=== PATIENT | female | born 1995 | race African-American/Black ===

== ENCOUNTER 2016-06-17 03:24 | Emergency (ER) | payer OTHER ==
[~2016-06-17] VITALS: Ht 170.2 cm; Wt 88.5 kg
[~2016-06-17 03:24] MED LIST: CLIN300C86 PO; DOXY100C2 PO; FLUC150T PO; METR500T PO
[2016-06-17 03:30] VITALS: BP 137/64
--- NOTE | 2016-06-17 04:10 | PHYS DOC ---
Past Medical History Past Medical History: Other Additional Past Medical Histor: GONORRHEA, TRICH Past Surgical History: No Surgical History Alcohol Use: Occasionally Drug Use: None Adult General Chief Complaint Chief Complaint: INSECT BITE HPI HPI 20-year-old female states she was bit by a spider on her right upper thigh 2 days ago and since that time she's had some tingling in her chest in her fingers and around her mouth. She's also had some body aches including upper back pain she's had some nausea and no fever chills or sweats. She states she didn't have any energy and didn't want to go to work today. [] Review of Systems Review of Systems Constitutional: Denies fever or chills [] Eyes: Denies change in visual acuity, redness, or eye pain [] HENT: Denies nasal congestion or sore throat [] Respiratory: Denies cough or shortness of breath [] Cardiovascular: No additional information not addressed in HPI [] GI: Denies abdominal pain, nausea, vomiting, bloody stools or diarrhea [] : Denies dysuria or hematuria [] Musculoskeletal: Denies back pain or joint pain [] Integument: Denies rash or skin lesions [] Neurologic: Denies headache, focal weakness or sensory changes [] Endocrine: Denies polyuria or polydipsia [] Allergies Allergies Allergies Coded Allergies Type Severity Reaction Last Updated Verified No Known Drug Allergies 10/12/14 No Physical Exam Physical Exam Constitutional: Well developed, well nourished, no acute distress, non-toxic appearance. [] HENT: Normocephalic, atraumatic, bilateral external ears normal, oropharynx moist, no oral exudates, nose normal. [] Eyes: PERRLA, EOMI, conjunctiva normal, no discharge. [] Neck: Normal range of motion, no tenderness, supple, no stridor. [] Cardiovascular:Heart rate regular rhythm, no murmur [] Lungs & Thorax: Bilateral breath sounds clear to auscultation [] Abdomen: Bowel sounds normal, soft, no tenderness, no masses, no pulsatile masses. [] Skin: Small abrasion right upper thigh there is no induration consistent with an abscess. [] Back: No tenderness, no CVA tenderness. [] Extremities: No tenderness, no cyanosis, no clubbing, ROM intact, no edema. [] Neurologic: Alert and oriented X 3, normal motor function, normal sensory function, no focal deficits noted. [] Psychologic: Affect normal, judgement normal, mood normal. [] Current Patient Data Vital Signs Vital Signs Date Time Temp Pulse Resp B/P Pulse Ox O2 Delivery O2 Flow Rate FiO2 06/17/16 03:30 98.0 83 16 137/64 97 Room Air 98.0 EKG EKG [] Radiology/Procedures Radiology/Procedures [] Course & Med Decision Making Course & Med Decision Making Pertinent Labs and Imaging studies reviewed. (See chart for details) [] Dragon Disclaimer Dragon Disclaimer This electronic medical record was generated, in whole or in part, using a voice recognition dictation system. Departure Departure Impression: Primary Impression: Insect bite Additional Impression: Myalgia Disposition: HOME, SELF-CARE Condition: STABLE Referrals: NO PCP (PCP) Patient Instructions: Insect Bite Additional Instructions: Please drink plenty of fluids including electrolyte containing solutions such as Gatorade or Powerade. Take Tylenol or Motrin over the next 2 days to help with her symptoms. Return to the MRSA part with any new or concerning symptoms Problem Qualifiers Primary Impression: Insect bite Encounter type: initial encounter Qualified Code: W57.XXXA - Bitten or stung by nonvenomous insect and other nonvenomous arthropods, initial encounter ISIDRO ALEXANDRE DO Jun 17, 2016 04:10
== END 2016-06-17 04:33 | disposition home or self-care (01) ==
LOC: ER 03:24
DX: S70.361A Insect bite (nonvenomous), right thigh, initial encounter (principal); M79.1 Myalgia; J98.8 Other specified respiratory disorders; R11.0 Nausea; W57.XXXA Bitten or stung by nonvenomous insect and other nonvenomous arthropods, initial encounter; Y93.89 Activity, other specified; Y99.8 Other external cause status; Y92.89 Other specified places as the place of occurrence of the external cause
CPT/HCPCS: 99283

== ENCOUNTER 2016-07-22 06:47 | Emergency (ER) | payer OTHER ==
[~2016-07-22] VITALS: Ht 170.2 cm; Wt 88.5 kg
--- NOTE | 2016-07-22 07:24 | PHYS DOC ---
Past Medical History Past Medical History: Other Additional Past Medical Histor: GONORRHEA, TRICH Past Surgical History: No Surgical History Alcohol Use: Occasionally Drug Use: None Adult General Chief Complaint Chief Complaint: BLOOD IN URINE HPI HPI Patient is a 20 year old female who presents with dysuria that began 3 days ago. Patient's also complaining of blood in her urine. Patient denies any fever nausea or vomiting. She is also complaining of chronic bilateral low back pain. Patient denies any known injury. Denies any pain radiating to bilateral lower extremities or any loss of bowel bladder function. Review of Systems Review of Systems Constitutional: Denies fever or chills [] Eyes: Denies change in visual acuity, redness, or eye pain [] HENT: Denies nasal congestion or sore throat [] Respiratory: Denies cough or shortness of breath [] Cardiovascular: No additional information not addressed in HPI [] GI: Denies abdominal pain, nausea, vomiting, bloody stools or diarrhea [] : dysuria and hematuria [] Musculoskeletal: Chronic low back pain Integument: Denies rash or skin lesions [] Neurologic: Denies headache, focal weakness or sensory changes [] Endocrine: Denies polyuria or polydipsia [] Current Medications Current Medications Current Medications Medications (Trade) Dose Ordered Sig/Delaney Start Time Stop Time Status Last Admin Dose Admin Ibuprofen (Motrin) 600 mg 1X ONCE 07/22/16 07:30 07/22/16 07:31 DC 07/22/16 07:53 600 MG Phenazopyridine HCl (Pyridium) 200 mg 1X ONCE 07/22/16 07:30 07/22/16 07:31 DC 07/22/16 07:53 200 MG Allergies Allergies Allergies Coded Allergies Type Severity Reaction Last Updated Verified No Known Drug Allergies 10/12/14 No Physical Exam Physical Exam Constitutional: Well developed, well nourished, no acute distress, non-toxic appearance. [] HENT: Normocephalic, atraumatic, bilateral external ears normal, oropharynx moist, no oral exudates, nose normal. [] Eyes: PERRLA, EOMI, conjunctiva normal, no discharge. [] Neck: Normal range of motion, no tenderness, supple, no stridor. [] Cardiovascular:Heart rate regular rhythm, no murmur [] Lungs & Thorax: Bilateral breath sounds clear to auscultation [] Abdomen: Bowel sounds normal, soft, no tenderness, no masses, no pulsatile masses. [] Skin: Warm, dry, no erythema, no rash. [] Back: No tenderness, no CVA tenderness. [] Extremities: No tenderness, no cyanosis, no clubbing, ROM intact, no edema. [] Neurologic: Alert and oriented X 3, normal motor function, normal sensory function, no focal deficits noted. [] Psychologic: Affect normal, judgement normal, mood normal. [] Current Patient Data Vital Signs Vital Signs Date Time Temp Pulse Resp B/P Pulse Ox O2 Delivery O2 Flow Rate FiO2 07/22/16 07:10 98.2 83 18 99 Room Air 98.2 Lab Values Laboratory Tests Test 07/22/16 07:17 07/22/16 08:05 POC Urine HCG, Qualitative Hcg negative (Negative) Urine Collection Type Unknown Urine Color Yellow Urine Clarity Cloudy Urine pH 6.0 Urine Specific [place] >=1.030 Urine Protein 100mg/dL (NEG-TRACE) Urine Glucose (UA) Negativemg/dL (NEG) Urine Ketones (Stick) Negativemg/dL (NEG) Urine Blood Large (NEG) Urine Nitrite Negative (NEG) Urine Bilirubin Negative (NEG) Urine Urobilinogen Dipstick 0.2mg/dL (0.2 mg/dL) Urine Leukocyte Esterase Large (NEG) Urine RBC Fobs/HPF (0-2) Urine WBC Tntc/HPF (0-4) Urine Squamous Epithelial Cells Many/LPF Urine Bacteria Many/HPF (0-FEW) Urine Mucus Marked/LPF EKG EKG [] Radiology/Procedures Radiology/Procedures [] Course & Med Decision Making Course & Med Decision Making Pertinent Labs and Imaging studies reviewed. (See chart for details) Patient is in the ED with dysuria for 3 days and hematuria. Patient is also complaining of chronic back pain. No known injury. Urine shows infection of the urine appears contaminated patient has UTI symptoms. Urine also was noted for large amount of blood agent is not on her menstrual cycle. We did a CT of the abdomen and pelvic which is negative. I went ahead and sent patient home with antibiotics specifically Bactrim and urine was sent to lab for culture. She was instructed to push fluids. Discharged with Pyridium for dysuria, ibuprofen and Flexeril for her chronic back pain. Provided return precautions and discharged in stable condition. Navneet Disclaimer Navneet Disclaimer This electronic medical record was generated, in whole or in part, using a voice recognition dictation system. Departure Departure Impression: Primary Impression: Urinary tract infection Additional Impression: Chronic back pain Disposition: 01 HOME, SELF-CARE Condition: STABLE Referrals: NO PCP (PCP) Follow-up with a doctor from the list provided in one week Patient Instructions: Back Pain, Adult, Urinary Tract Infection Additional Instructions: You were seen for urinary tract infection and chronic back pain. Please complete your antibiotics. Follow-up with your doctor or doctor from the list provided in one week. Come back to the ED if symptoms worsen. Scripts Naproxen 500 Mg Tablet.dr1 Tab PO BID #30 TAB Ref 2 Prov:JILLIAN LIU APRN 07/22/16 Cyclobenzaprine Hcl 10 Mg Tablet1 Tab PO TID #30 TAB Prov:JILLIAN LIU APRN 07/22/16 Phenazopyridine Hcl (Pyridium)100 Mg [id number] Mg PO TID #8 TAB Prov:JILLIAN LIU APRN 07/22/16 Sulfamethoxazole/Trimethoprim (Bactrim Ds Tablet)1 Each Tablet1 Tab PO BID #14 TAB Prov:JILLIAN LIU APRN 07/22/16 Problem Qualifiers Primary Impression: Urinary tract infection Urinary tract infection type: acute cystitis Hematuria presence: with hematuria Qualified Code: N30.01 - Acute cystitis with hematuria Additional Impression: Chronic back pain Back pain location: low back pain Back pain laterality: bilateral Sciatica presence: without sciatica Qualified Code: M54.5 - Low back pain JILLIAN LIU APRN Jul 22, 2016 07:24
[2016-07-22] MEDS ORDERED: IBUPROFEN 600 MG TABLET. PO ONE (07:30)
[2016-07-22] MEDS ORDERED: PHENAZOPYRIDINE 200 MG TABLET. PO ONE (07:30)
[2016-07-22 08:26] LABS: BILIRUBIN,URINE NEGATIVE (NEG); GLUCOSE,URINE NEGATIVE (NEG); NITRITE,URINE NEGATIVE (NEG); PROTEIN,URINE 100 mg/dL (NEG-TRACE); UROBILINOGEN,URINE 0.2 mg/dL (0.2 mg/dL)
[2016-07-22 08:37] LABS: BACTERIA,URINE MANY /HPF (0-FEW); RBC,URINE FOBS /HPF (0-2); SQUAMOUS EPITHELIAL CELL,UR MANY /LPF; WBC,URINE TNTC /HPF (0-4)
--- NOTE | 2016-07-22 10:41 | RAD ---
CT scan of the abdomen and pelvis without contrast 07/22/2016 Clinical history: Hematuria and left flank pain. Technique: Unenhanced, contiguous, 2 mm axial sections were obtained through the abdomen and pelvis. One or more of the following individualized dose reduction techniques were utilized for this study: 1. Automated exposure control. 2. Adjustment of the mA and/or kV according to patient size. 3. Use of iterative reconstruction technique. Findings: Images through the lung bases are within normal limits. The liver, spleen, pancreas, and adrenal glands are within normal limits. No renal or ureteral calculus is seen. There is no evidence of significant obstruction of either collecting system. A punctate calcification is seen inferior and medial to the left kidney which appears to be separate from the left renal pelvis/ureter. It is felt to most likely represent a phlebolith. The abdominal aorta tapers normally. The gallbladder is well-distended. No free fluid or free air is seen within the abdomen. There is no evidence of bowel obstruction. The appendix is well visualized and is within normal limits. Images through the pelvis demonstrate the urinary bladder be contracted. Calcifications are seen within the pelvis consistent with phleboliths. A small to moderate amount of free fluid is seen within the pelvis. No adnexal mass is seen. Very mild S-shaped curvature of the thoracolumbar spine is noted. Impression: 1. No renal or ureteral calculus is seen. There is no evidence of obstruction of either collecting system. 2. Small to moderate amount of free fluid is seen within the pelvis.
[2016-07-22] MEDS ORDERED: PHEN100T82 PO (10:55)
[2016-07-22] MEDS ORDERED: CYCL10TA2 PO (10:55)
[2016-07-22] MEDS ORDERED: SULF1TAB24 PO (10:55)
[2016-07-22] MEDS ORDERED: NAPR500T8 PO (10:55)
[2016-07-22 11:00] VITALS: BP 114/58
== END 2016-07-22 11:00 | disposition home or self-care (01) ==
LOC: ER 06:47
DX: N30.01 Acute cystitis with hematuria (principal); G89.29 Other chronic pain; M54.5 Low back pain
CPT/HCPCS: 74176; 81001; 81025; 87086; 99285-25

== ENCOUNTER 2016-09-03 14:30 | Emergency (ER) | payer SELFPAY ==
[~2016-09-03] VITALS: Ht 170.2 cm; Wt 94.8 kg
[~2016-09-03 14:30] MED LIST changes: +CYCL10TA2 PO; +NAPR500T8 PO; +PHEN100T82 PO; +SULF1TAB24 PO
[2016-09-03 14:52] VITALS: BP 105/60
[2016-09-03] MEDS ORDERED: NYST30PO9 TP (15:36)
--- NOTE | 2016-09-03 15:36 | PHYS DOC ---
Past Medical History Past Medical History: STD, Other Additional Past Medical Histor: GONORRHEA, TRICH, substance abuse Past Surgical History: No Surgical History Additional Information: 4-5 cigarettes daily Alcohol Use: Sober Additional Information: sober 1 week Drug Use: Cocaine, Marijuana, Phencyclidine, Other Social History Narrative: whet Adult General Chief Complaint Chief Complaint: BREAST PROBLEM HPI HPI 20-year-old female presenting to the emergency department today by EMS after complaining of a rash underneath her breasts bilaterally is been present for about one week. It is a red eye rash. She reports using a recent change in her fabric softener. She has not tried anything for the rash. She does have a pain around the rash is sharp mild worse with contact and without alleviating factors. Review of systems is positive for sharp shooting chest pain intermittently for 3 days that is worse with deep breaths. It is nonradiating mild to moderate intermittent and without alleviating factors. She does have a history of cocaine use approximately 2 weeks ago. Otherwise, review of systems is negative for abdominal pain nausea vomiting diaphoresis. All other review of systems is negative unless otherwise noted in history of present illness. Review of Systems Review of Systems SEE ABOVE. Allergies Allergies Allergies Coded Allergies Type Severity Reaction Last Updated Verified No Known Drug Allergies 10/12/14 No Physical Exam Physical Exam Constitutional: Well developed, well nourished, no acute distress, non-toxic appearance. HENT: Normocephalic, atraumatic, bilateral external ears normal, oropharynx moist, no oral exudates, nose normal. Eyes: PERRLA, EOMI, conjunctiva normal, no discharge. [] Neck: Normal range of motion, no tenderness, supple, no stridor. Cardiovascular:Heart rate regular rhythm, no murmur [] Lungs & Thorax: Bilateral breath sounds clear to auscultation Abdomen: Bowel sounds normal, soft, no tenderness, no masses, no pulsatile masses. [] Skin: The patient has a dry scaly rash underneath both breasts. This was visualized in the presence of a female nurse media sales representative. Otherwise her skin is warm and dry. Back: No tenderness, no CVA tenderness. Extremities: No tenderness, no cyanosis, no clubbing, ROM intact, no edema. Neurologic: Alert and oriented X 3, normal motor function, normal sensory function, no focal deficits noted. [] Psychologic: Affect normal, judgement normal, mood normal. Current Patient Data Vital Signs Vital Signs Date Time Temp Pulse Resp B/P Pulse Ox O2 Delivery O2 Flow Rate FiO2 09/03/16 14:52 98.1 89 16 105/60 99 Room Air 98.1 EKG EKG [] Radiology/Procedures Radiology/Procedures [] Course & Med Decision Making Course & Med Decision Making Pertinent Labs and Imaging studies reviewed. (See chart for details) [] 20-year-old female presenting with a rash underneath her breasts consistent with a fungal rash. Triage vital signs afebrile normal heart rate. Unremarkable. Pertinent physical exam shows a rash underneath her breasts consistent with a fungal rash. No evidence of DVT in the legs, no family history or personal history of blood clotting disorders. Not tachycardic or hypoxic. Currently she denies chest pain. I ordered an EKG and a chest x-ray to evaluate her reported chest pain which she did not want to pursue. I explained to her the risks and benefits. I then proceeded to prescribe her a fungal powder for her rash to follow-up with her PCP over the next 2-3 days. She was then discharged in stable condition. Dragon Disclaimer Dragon Disclaimer This electronic medical record was generated, in whole or in part, using a voice recognition dictation system. Departure Departure Impression: Primary Impression: Fungal rash of trunk Disposition: 01 HOME, SELF-CARE Condition: STABLE Referrals: NO PCP (PCP) DEIRDRE JARVIS MD Patient Instructions: Cutaneous Candidiasis Additional Instructions: Thank you for allowing us to participate in your care today. Followup with your primary care physician in 3 days if your symptoms do not improve. If you do not have a primary care provider you can ask for a list of our primary care providers. Return to the emergency department you have any new or concerning findings. This should be evaluated by the primary care physician and any necessary consulting services for continued management within a few days after discharge. Return to emergency room if you have any new or concerning symptoms including but not limited to fever, chills, nausea, vomiting, intractable pain, any new rashes, chest pain, shortness of air, uncontrolled bleeding, difficulty breathing, and/or vision loss. You may have been prescribed medication that can change in your level of thinking and ability to operate machinery. These medications include hydrocodone and Ativan. Also, Benadryl has been known to do this as well. Be sure to check with your pharmacist and ask if the medications you've prescribed can affect your level of consciousness. I recommend not operating heavy machinery or driving while on medication such as these. Scripts Nystatin 15 Gm Powder1 Raul TP BID 7 Days Powder: Apply to the affected areas 2 times daily until healing is complete Prov:CONRAD JEWELL MD 09/03/16 CONRAD JEWELL MD Sep 03, 2016 15:36
== END 2016-09-03 15:55 | disposition home or self-care (01) ==
LOC: ER 14:30
DX: B48.8 Other specified mycoses (principal); R07.89 Other chest pain; H57.8 Other specified disorders of eye and adnexa; F17.210 Nicotine dependence, cigarettes, uncomplicated; F14.10 Cocaine abuse, uncomplicated; F12.10 Cannabis abuse, uncomplicated; F16.10 Hallucinogen abuse, uncomplicated
CPT/HCPCS: 99283

== ENCOUNTER 2017-10-13 16:09 | Observation (INO) | payer SELFPAY ==
[2017-10-13] MEDS ORDERED: IV RINGERS,LACTATED 1000ML 1,000 ML IV (17:00)
[2017-10-13 17:09] LABS: AMPHETAMINE/METHAMPHETAMINE NEG (NEG); BARBITURATES NEG (NEG); BENZODIAZEPINES NEG (NEG); CANNABINOIDS NEG (NEG); COCAINE NEG (NEG); ETHANOL, URINE NEG (NEG); METHADONE NEG (NEG); OPIATES NEG (NEG); PHENCYCLIDINE NEG (NEG)
[2017-10-13 17:10] LABS: BILIRUBIN,URINE NEGATIVE (NEG); CLARITY,URINE CLOUDY; COLOR,URINE YELLOW; GLUCOSE,URINE NEGATIVE (NEG); NITRITE,URINE NEGATIVE (NEG); PH,URINE 7.5; PROTEIN,URINE NEGATIVE (NEG-TRACE)
[2017-10-13 17:40] LABS: AMORPHOUS SEDIMENT,UR PRESENT /HPF; BACTERIA,URINE MANY /HPF (0-FEW); RBC,URINE 0 /HPF (0-2); SQUAMOUS EPITHELIAL CELL,UR MOD /LPF; WBC,URINE OCC /HPF (0-4)
== END 2017-10-13 18:19 | disposition home or self-care (01) ==
LOC: 3 SO LND 16:09
DX: O26.893 Other specified pregnancy related conditions, third trimester (principal); R10.9 Unspecified abdominal pain; Z3A.31 31 weeks gestation of pregnancy
CPT/HCPCS: 80307; 81001; 87086; G0378; G0379

== ENCOUNTER 2019-09-25 10:29 | Emergency (ER) | payer SELFPAY ==
[~2019-09-25] VITALS: Ht 170.2 cm; Wt 90.9 kg
[~2019-09-25 10:29] MED LIST changes: +CLIN300C8 PO; -CLIN300C86 PO; +NYST15PO9 TP
[2019-09-25 10:40] VITALS: BP 139/72
[2019-09-25] MEDS ORDERED: NEOMY/BACITR/POLYMYXIN OINT PACKET. TP ONE ×2 (11:11→11:15)
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
[2019-09-25] MEDS ORDERED: TETANUS AND DIPHTHERIA TOX/PF 0.5 ML DISP.SYRIN. VAX IM ONE (11:15)
== END 2019-09-25 11:21 | disposition home or self-care (01) ==
LOC: ER 10:29
DX: S51.812A Laceration without foreign body of left forearm, initial encounter (principal); F17.200 Nicotine dependence, unspecified, uncomplicated; F10.20 Alcohol dependence, uncomplicated; Y90.9 Presence of alcohol in blood, level not specified; W25.XXXA Contact with sharp glass, initial encounter; Y93.89 Activity, other specified; Y92.89 Other specified places as the place of occurrence of the external cause; Y99.8 Other external cause status
CPT/HCPCS: 12002; 90471; 90714; 99283

== ENCOUNTER 2020-04-22 20:48 | Emergency (ER) | payer SELFPAY ==
[~2020-04-22] VITALS: Ht 170.2 cm; Wt 98.6 kg
[~2020-04-22 20:48] MED LIST changes: -CLIN300C8 PO; +CLIN300C9 PO
[2020-04-22 20:50] VITALS: BP 110/34
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
[2020-04-22] MEDS ORDERED: diphenhydrAMINE HCL 25 MG CAPSULE PO ONE (22:30)
[2020-04-22] MEDS ORDERED: DEXAMETHASONE 4 MG TABLET PO ONE (22:30)
== END 2020-04-22 22:48 | disposition home or self-care (01) ==
LOC: ER 20:48
DX: O26.891 Other specified pregnancy related conditions, first trimester (principal); T47.1X5A Adverse effect of other antacids and anti-gastric-secretion drugs, initial encounter; R13.10 Dysphagia, unspecified; R60.0 Localized edema; F41.9 Anxiety disorder, unspecified; R10.9 Unspecified abdominal pain; Y92.89 Other specified places as the place of occurrence of the external cause; Z3A.01 Less than 8 weeks gestation of pregnancy
CPT/HCPCS: 81025; 99283

== ENCOUNTER 2020-04-24 19:34 | Emergency (ER) | payer SELFPAY ==
[~2020-04-24] VITALS: Ht 170.2 cm; Wt 98.6 kg
[2020-04-24 20:57] VITALS: BP 103/51
--- NOTE | 2020-04-24 21:44 | PHYS DOC ---
Past Medical History Past Medical History: Bipolar, STD, Other Additional Past Medical Histor: GONORRHEA, TRICH, substance abuse Past Surgical History: Other Additional Past Surgical Histo: bartholyn cyst removal Smoking Status: Current Every Day Smoker Alcohol Use: Heavy Drug Use: Cocaine, Marijuana, Phencyclidine, Other General Adult EDM: Chief Complaint: ABDOMINAL PAIN HPI: HPI: Patient is a 24 year old [f__sex] who presents with [] Review of Systems: Review of Systems: Constitutional: Denies fever or chills. [] Eyes: Denies change in visual acuity. [] HENT: Denies nasal congestion or sore throat. [] Respiratory: Denies cough or shortness of breath. [] Cardiovascular: Denies chest pain or edema. [] GI: Denies abdominal pain, nausea, vomiting, bloody stools or diarrhea. [] : Denies dysuria. [] Musculoskeletal: Denies back pain or joint pain. [] Integument: Denies rash. [] Neurologic: Denies headache, focal weakness or sensory changes. [] Endocrine: Denies polyuria or polydipsia. [] Lymphatic: Denies swollen glands. [] Psychiatric: Denies depression or anxiety. [] Heart Score: Risk Factors: Risk Factors: DM, Current or recent (<one month) smoker, HTN, HLP, family history of CAD, obesity. Risk Scores: Score 0 - 3: 2.5% MACE over next 6 weeks - Discharge Home Score 4 - 6: 20.3% MACE over next 6 weeks - Admit for Clinical Observation Score 7 - 10: 72.7% MACE over next 6 weeks - Early Invasive Strategies Allergies: Allergies: Allergies Coded Allergies Type Severity Reaction Last Updated Verified No Known Drug Allergies 10/12/14 No Physical Exam: PE: Constitutional: Well developed, well nourished, no acute distress, non-toxic appearance. [] HENT: Normocephalic, atraumatic, bilateral external ears normal, oropharynx moist, no oral exudates, nose normal. [] Eyes: PERRLA, EOMI, conjunctiva normal, no discharge. [] Neck: Normal range of motion, no tenderness, supple, no stridor. [] Cardiovascular:Heart rate regular rhythm, no murmur [] Lungs & Thorax: Bilateral breath sounds clear to auscultation [] Abdomen: Bowel sounds normal, soft, no tenderness, no masses, no pulsatile masses. [] Skin: Warm, dry, no erythema, no rash. [] Back: No tenderness, no CVA tenderness. [] Extremities: No tenderness, no cyanosis, no clubbing, ROM intact, no edema. [] Neurologic: Alert and oriented X 3, normal motor function, normal sensory function, no focal deficits noted. [] Psychologic: Affect normal, judgement normal, mood normal. [] EKG: EKG: [] Radiology/Procedures: Radiology/Procedures: [] Course & Med Decision Making: Course & Med Decision Making Pertinent Labs and Imaging studies reviewed. (See chart for details) [] Dragon Disclaimer: Vudu Disclaimer: This electronic medical record was generated, in whole or in part, using a voice recognition dictation system. Departure Departure Impression: Primary Impression: , therapeutic incomplete Disposition: 01 DC HOME SELF CARE/HOMELESS Condition: STABLE Referrals: NO PCP (PCP) Patient Instructions: , Prostaglandin-Induced Additional Instructions: Please allow your medications given by the clinic to complete its course, please give an additional 2 weeks. If still having symptoms or worsening symptoms please return to the emergency department, please follow-up with your REGIONAL ENVIRONMENTAL MANAGER specialist. Please use [id number] Tylenol and/or Motrin for discomfort. EMERGENCY DEPARTMENT GENERAL DISCHARGE INSTRUCTIONS Thank you for coming to [facility] Emergency Department (ED) today and trusting us with you care. We trust that you had a positive experience in our Emergency Department. If you wish to speak to the department management, you may call the Director at [phone]. YOUR FOLLOW UP INSTRUCTIONS ARE FOLLOWS: 1. Do you have a private Doctor? If you do not have a private doctor, please ask for a resource list of physicians or clinics that may be able to assist you with follow up care. 2. The Emergency Physicain has interpreted your x-rays. The X-Ray specialist will also review them. If there is a change in the findings, you will be notified in 48 hours when at all possible. 3. A lab test or culture has been done, your results will be reviewed and you will be notified if you need a change in treatment. ADDITIONAL INSTRUCTIONS AND INFORMATION: 1. Your care today has been supervised by a physician who is specially trained in emergency care. Many problems require more than one evaluation for a complete diagnosis and treatment. We recommend that you schedule your follow up appointment as recommended to ensure complete treatment of you illness or injury. If you are unable to obtain follow up care and continue to have a problem, or if your condition worsens, we recommend that you return to the ED. 2. We are not able to safely determine your condition over the phone nor are we able to give sound medical advice over the phone. For these safety reasons, if you call for medical advice we will ask you to come to the ED for further evaluation. 3. If you have any questions regarding these discharge instructions please call the ED at [phone]. SAFETY INFORMATION: In the interest of safety, wellness, and injury prevention; we encourage you to wear your sealbelt, if you smoke; quite smoking, and we encourage family to use a protective helmet for bicycling and other sporting events that present an increased risk for head injury. IF YOUR SYMPTOMS WORSEN OR NEW SYMPTOMS DEVELOP, OR YOU HAVE CONCERNS ABOUT YOUR CONDITION; OR IF YOUR CONDITION WORSENS WHILE YOU ARE WAITING FOR YOUR FOLLOW UP APPOINTMENT; EITHER CONTACT YOUR PRIMARY CARE DOCTOR, THE PHYSICIAN WHOSE NAME AND NUMBER YOU WERE GIVEN, OR RETURN TO THE ED IMMEDIATELY. DEIRDRE JOHNSON APRN Apr 24, 2020 21:44
[2020-04-24 22:28] LABS: BILIRUBIN,URINE NEGATIVE (NEG); CLARITY,URINE CLOUDY; COLOR,URINE YELLOW; NITRITE,URINE NEGATIVE (NEG); PH,URINE 6.5 (<5.0-8.0); PROTEIN,URINE 30 mg/dL (NEG-TRACE)
[2020-04-24 22:29] LABS: BACTERIA,URINE MANY /HPF (0-FEW); RBC,URINE TNTC /HPF (0-2); WBC,URINE 20-40 /HPF (0-4)
--- NOTE | 2020-04-24 23:26 | RAD ---
OB TRANSVAG History: Reason: OB LESS THAN 20 WEEKS TAB R/O RETAINED PRODUCTS / Spl. Instructions: / History: Comparison: None. Technique: Grayscale and color Doppler imaging of the pelvis was performed using transabdominal technique. Findings: The uterus measures 9.1 x 5.9 x 5.8 cm. Nonspecific fluid within the endometrial canal. Small cystic structure within the endometrial canal with regular appearance measures 0.35 cm, may represent gestational sac. No yolk sac or pole is identified. Estimated gestational age if the cystic structure represents gestational sac would be 5 weeks 1 day. Right ovary measures 4.0 x 2.4 x 2.4 cm. Dominant right ovarian follicle measures 1.5 cm. Left ovary measures 3.8 x 2.2 x 2.0 cm. Normal Doppler flow to the ovaries bilaterally. No adnexal masses are seen. IMPRESSION: 1. Possible gestational sac within the endometrial canal. No pole is identified. Recommend short-term ultrasound follow-up and serial beta-hCG testing. 2. Nonspecific fluid within the endometrial canal. Electronically signed by: Bala Del Cid DO (04/24/2020 11:23 PM) [facility]
[2020-04-25 00:24] LABS: BASO # 0.1 x10^3/uL (0.0-0.2); BASO % 1 % (0-3); EOS # 0.1 x10^3/uL (0.0-0.7); EOS % 1 % (0-3); HEMATOCRIT 36.5 % (36.0-47.0); HEMOGLOBIN 12.6 g/dL (12.0-15.5); LYMPH # 4.4 x10^3/uL (1.0-4.8); LYMPH % 45 % (24-48); MEAN CORPUSCULAR HEMOGLOBIN 31 pg (25-35); MEAN CORPUSCULAR HGB CONC 34 g/dL (31-37); MEAN CORPUSCULAR VOLUME 89 fL (79-100); MONO # 0.6 x10^3/uL (0.0-1.1); MONO % 7 % (0-9); NEUT # 4.6 x10^3/uL (1.8-7.7); NEUT % 47 % (31-73); PLATELET COUNT 249 x10^3/uL (140-400); RED BLOOD COUNT 4.09 x10^6/uL (3.50-5.40); RED CELL DISTRIBUTION WIDTH 13.8 % (11.5-14.5); WHITE BLOOD COUNT 9.8 x10^3/uL (4.0-11.0)
[2020-04-25 00:38] LABS: TOTAL PROTEIN 6.9 g/dL (6.4-8.2)
[2020-04-25 00:39] LABS: ALBUMIN 3.4 g/dL (3.4-5.0); CALCIUM 8.8 mg/dL (8.5-10.1); CREATININE 0.9 mg/dL (0.6-1.0); GFR 92.3; POTASSIUM 3.5 mmol/L (3.5-5.1); TOTAL BILIRUBIN 0.1 mg/dL (0.2-1.0)
== END 2020-04-25 00:50 | disposition home or self-care (01) ==
LOC: ER 19:34
DX: O03.4 Incomplete spontaneous abortion without complication (principal); F31.9 Bipolar disorder, unspecified; F17.200 Nicotine dependence, unspecified, uncomplicated; F10.20 Alcohol dependence, uncomplicated; Y90.9 Presence of alcohol in blood, level not specified
CPT/HCPCS: 36415; 76817; 80053; 81001; 81025; 85025; 87086; 99284

== ENCOUNTER 2020-05-03 22:12 | Emergency (ER) | payer SELFPAY ==
[~2020-05-03] VITALS: Ht 170.2 cm; Wt 99.7 kg
--- NOTE | 2020-05-03 23:57 | PHYS DOC ---
Past Medical History Past Medical History: No Pertinent History Additional Past Medical Histor: GONORRHEA, TRICH, substance abuse Past Surgical History: No Surgical History Additional Past Surgical Histo: bartholyn cyst removal Smoking Status: Former Smoker Alcohol Use: Occasionally Drug Use: Cocaine, Marijuana, Phencyclidine, Other General Adult EDM: Chief Complaint: MULTIPLE COMPLAINTS HPI: HPI: 24-year-old female who presents for evaluation of multiple symptoms. She reports 1 week of diffuse myalgias and nonspecific upper bilateral back discomfort. Associated with intermittent nausea, fatigue, poor energy. The patient had a recent medical with Cytotec receiving doses on the fourth and 6. She had vaginal bleeding for 10 days and had passage of contents a couple days ago, no longer bleeding. No vaginal discharge. No chest pain, dyspnea, abdominal pain, diarrhea, vomiting. Review of Systems: Review of Systems: Gen: No fever, chills. Reports fatigue. Eyes: No blurred vision, diplopia. ENT: No nasal congestion, sore throat. CV: No CP, palpitations. Resp. No SOB, cough. GI: No abd pain, vomiting, diarrhea. Reports nausea. : No dysuria, hematuria, vaginal bleeding or discharge. Neuro: No CORONADO, dizziness, weakness. MSK: Reports myalgias, back pain. Skin: No acute rash or lesion. Heart Score: Risk Factors: Risk Factors: DM, Current or recent (<one month) smoker, HTN, HLP, family history of CAD, obesity. Risk Scores: Score 0 - 3: 2.5% MACE over next 6 weeks - Discharge Home Score 4 - 6: 20.3% MACE over next 6 weeks - Admit for Clinical Observation Score 7 - 10: 72.7% MACE over next 6 weeks - Early Invasive Strategies Allergies: Allergies: Allergies Coded Allergies Type Severity Reaction Last Updated Verified No Known Drug Allergies 10/12/14 No Physical Exam: PE: Gen: NAD. Head: NC/AT. Eyes: No scleral icterus. No conjunctival injection. ENT: MMM. Posterior OP clear. Neck: Supple. NT. CV: RRR. Peripheral pulses intact. Resp: CTAB. Abd: Soft. NT. ND. MSK: No peripheral cyanosis. No edema. Neuro: A&Ox3. Strength & sensation grossly intact throughout. Skin. Warm. Dry. Psych: Appropriate mood & affect. Current Patient Data: Labs: Laboratory Tests Test 05/03/20 23:03 POC Urine HCG, Qualitative Borderline hcg level Vital Signs: Vital Signs Date Time Temp Pulse Resp B/P (MAP) Pulse Ox O2 Delivery O2 Flow Rate FiO2 05/03/20 23:14 97.9 76 16 120/69 (86) 100 97.9 EKG: EKG: [] Radiology/Procedures: Radiology/Procedures: PROCEDURE: CHEST AP ONLY FINDINGS: Single view of chest obtained. Hypoexpanded examination. Mild haziness at the left lower lung. No gross osseous destructive lesion. IMPRESSION: * Mild haziness at the left lung base which could be secondary to overlap of structures but early infiltrate or atelectasis could have this appearance. Electronically signed by: Rodolfo Magana MD (05/04/2020 12:20 AM) DESKTOP- [id number] Course & Med Decision Making: Course & Med Decision Making Pertinent Labs and Imaging studies reviewed. (See chart for details) In summary, healthy 24-year-old female who presents with multiple vague constitutional symptoms in the setting of recent medical receiving Cytotec on April 21 and with passage of POC's a couple days ago. No current vaginal bleeding or discharge, abdominal pain or pelvic pain. Hemodynamically stable. Benign abdominal exam. Bedside transabdominal pelvic ultrasound revealed a fully collapsed uterus. Lab work is largely unremarkable as well. No evidence of UTI. Chest x-ray with possible developing left lower lobe infiltrate. Not currently suspecting endometritis. Remains well- appearing and nontoxic. We discharged home with outpatient follow-up. Return precautions given. Navneet Disclaimer: Navneet Disclaimer: This electronic medical record was generated, in whole or in part, using a voice recognition dictation system. Departure Departure Impression: Primary Impression: LLL pneumonia Additional Impression: Myalgia Disposition: 01 DC HOME SELF CARE/HOMELESS Condition: STABLE Referrals: NO PCP (PCP) Patient Instructions: Myalgia, Adult, Pneumonia, Adult Scripts Ondansetron (ONDANSETRON ODT) 4 Mg Tab.rapdis 1 TAB PO PRN Q6-8HRS, #16 TAB Prov: LE,JODI H DO 05/04/20 Doxycycline Hyclate (DOXYCYCLINE HYCLATE) 100 Mg Capsule 1 CAP PO BID, #14 CAP Prov: LE,JODI H DO 05/04/20 LE,JODI H DO May 03, 2020 23:57
[2020-05-04] LABS: BILIRUBIN,URINE NEGATIVE (NEG); CLARITY,URINE CLEAR; COLOR,URINE YELLOW; NITRITE,URINE NEGATIVE (NEG); PROTEIN,URINE NEGATIVE (NEG-TRACE); UROBILINOGEN,URINE 0.2 mg/dL (0.2 mg/dL)
[2020-05-04 00:09] LABS: BACTERIA,URINE MOD /HPF (0-FEW); RBC,URINE 0 /HPF (0-2)
--- NOTE | 2020-05-04 00:23 | RAD ---
INDICATION: Reason: Fever/chills / Spl. Instructions: / History: COMPARISON: None. FINDINGS: Single view of chest obtained. Hypoexpanded examination. Mild haziness at the left lower lung. No gross osseous destructive lesion. IMPRESSION: * Mild haziness at the left lung base which could be secondary to overlap of structures but early in filtrate or atelectasis could have this appearance. Electronically signed by: Rodolfo Magana MD (05/04/2020 12:20 AM) [id number]
[2020-05-04 00:30] LABS: BASO # 0.1 x10^3/uL (0.0-0.2); BASO % 1 % (0-3); EOS # 0.1 x10^3/uL (0.0-0.7); EOS % 2 % (0-3); HEMOGLOBIN 13.1 g/dL (12.0-15.5); LYMPH % 50 % (24-48); MEAN CORPUSCULAR HEMOGLOBIN 30 pg (25-35); MEAN CORPUSCULAR HGB CONC 34 g/dL (31-37); MEAN CORPUSCULAR VOLUME 89 fL (79-100); MONO # 0.5 x10^3/uL (0.0-1.1); MONO % 9 % (0-9); NEUT # 2.3 x10^3/uL (1.8-7.7); NEUT % 39 % (31-73); PLATELET COUNT 269 x10^3/uL (140-400); RED BLOOD COUNT 4.36 x10^6/uL (3.50-5.40); RED CELL DISTRIBUTION WIDTH 13.9 % (11.5-14.5); WHITE BLOOD COUNT 6.1 x10^3/uL (4.0-11.0)
[2020-05-04 00:39] LABS: CREATININE 0.9 mg/dL (0.6-1.0); GFR 92.3; POTASSIUM 4.1 mmol/L (3.5-5.1)
[2020-05-04 00:46] LABS: ALBUMIN 3.6 g/dL (3.4-5.0); ALBUMIN/GLOBULIN RATIO 0.9 (1.0-1.7); TOTAL BILIRUBIN 0.1 mg/dL (0.2-1.0); TOTAL PROTEIN 7.5 g/dL (6.4-8.2)
[2020-05-04] MEDS ORDERED: DOXY100C2 PO (01:00)
[2020-05-04] MEDS ORDERED: ONDA4TAB12 PO (01:00)
[2020-05-04] MEDS ORDERED: IV NORMAL SALINE 1000ML BAG 1,000 ML IV ONE (01:00)
[2020-05-04 01:48] VITALS: BP 105/58
== END 2020-05-04 02:14 | disposition home or self-care (01) ==
LOC: ER 22:12
DX: J18.1 Lobar pneumonia, unspecified organism (principal); M79.10 Myalgia, unspecified site; M54.6 Pain in thoracic spine; R11.0 Nausea; Z87.891 Personal history of nicotine dependence
CPT/HCPCS: 36415; 71045; 80053; 81001; 81025; 82550; 83735; 84702; 85025; 96360; 99284; J7030

== ENCOUNTER 2020-05-08 18:25 | Emergency (ER) | payer SELFPAY ==
[~2020-05-08] VITALS: Ht 170.2 cm; Wt 100.0 kg
[~2020-05-08 18:25] MED LIST changes: +ONDA4TAB12 PO
[2020-05-08 20:15] VITALS: BP 114/62
--- NOTE | 2020-05-08 20:24 | RAD ---
AP chest. HISTORY: Recent diagnosis with pneumonia with fever and chills, not feeling better AP view was taken of the chest. Heart is normal in size. There is no pleural effusion. There is no ac sary infiltrate. Heart is normal in size. IMPRESSION: 1. No infiltrates noted. Electronically signed by: Jonny Robbins MD (05/08/2020 8:22 PM) [id number]
--- NOTE | 2020-05-08 20:38 | PHYS DOC ---
Past Medical History Past Medical History: No Pertinent History, Other Additional Past Medical Histor: GONORRHEA, TRICH, substance abuse Past Surgical History: No Surgical History Additional Past Surgical Histo: bartholyn cyst removal Smoking Status: Former Smoker Alcohol Use: Occasionally Drug Use: Cocaine, Marijuana, Phencyclidine, Other General Adult EDM: Chief Complaint: FATIGUE HPI: HPI: Patient is a 24 year old female who presents to the ED. Stating she is not feeling better after being diagnosed with pneumonia on May 03. She states this whole situation began in March when she had a cold. She states she later on found out she was , she states she did a medical and took misoprostol on April 21 and repeated on April 23, she states she had a successful bled for 10 days with no heavy bleeding. She states the bleeding stopped. She states May 03 she came to the ED because she was not feeling well. She states she was diagnosed with pneumonia and sent home with doxycycline. She states now she has a headache mostly on the frontal aspect mild in nature and intermittent. Denies anything specifically exacerbating or relieving the headache. She states the doxycycline they put her on she is not taking it as prescribed. She states it makes her sick to her stomach so she stopped taking it. She states maybe she takes 1 tablet/day. She states she also noted a small rash on her left upper chest for the last 4 days. She states that the rash feels dry and scaly. She wants the rash evaluated. Denies any fever. Review of Systems: Review of Systems: Constitutional: Denies fever or chills. [] Eyes: Denies change in visual acuity. [] HENT: Denies nasal congestion or sore throat. [] Respiratory: Reports recent diagnosis of left lower lobe pneumonia. Denies cough or shortness of breath. [] Cardiovascular: Denies chest pain or edema. [] GI: Denies abdominal pain, nausea, vomiting, bloody stools or diarrhea. [] : Denies dysuria. [] Musculoskeletal: Denies back pain or joint pain. [] Integument: Reports left upper chest rash Neurologic: Reports headache, denies focal weakness or sensory changes. [] Psychiatric: Denies depression or anxiety. [] Heart Score: Risk Factors: Risk Factors: DM, Current or recent (<one month) smoker, HTN, HLP, family history of CAD, obesity. Risk Scores: Score 0 - 3: 2.5% MACE over next 6 weeks - Discharge Home Score 4 - 6: 20.3% MACE over next 6 weeks - Admit for Clinical Observation Score 7 - 10: 72.7% MACE over next 6 weeks - Early Invasive Strategies Allergies: Allergies: Allergies Coded Allergies Type Severity Reaction Last Updated Verified No Known Drug Allergies 10/12/14 No Physical Exam: PE: Constitutional: Well developed, well nourished, no acute distress, non-toxic appearance. [] HENT: Normocephalic, atraumatic, bilateral external ears normal, oropharynx moist, no oral exudates, nose normal. [] Eyes: PERRLA, EOMI, conjunctiva normal, no discharge. [] Neck: Normal range of motion, no tenderness, supple, no stridor. [] Cardiovascular:Heart rate regular rhythm, no murmur [] Lungs & Thorax: Bilateral breath sounds clear to auscultation [] Abdomen: Bowel sounds normal, soft, no tenderness, no masses, no pulsatile masses. [] Skin: Warm, dry, left upper chest around the scapula with a scaly erythematous rash. No signs of infection. Back: No tenderness, no CVA tenderness. [] Extremities: No tenderness, no cyanosis, no clubbing, ROM intact, no edema. [] Neurologic: Alert and oriented X 3, normal motor function, normal sensory function, no focal deficits noted. [] Psychologic: Affect normal, judgement normal, mood normal. [] Current Patient Data: Labs: Laboratory Tests Test 05/08/20 19:34 POC Urine HCG, Qualitative Hcg negative (Negative) Vital Signs: Vital Signs Date Time Temp Pulse Resp B/P (MAP) Pulse Ox O2 Delivery O2 Flow Rate FiO2 05/08/20 19:17 79 102/59 (73) 98 EKG: EKG: [] Radiology/Procedures: Radiology/Procedures: []PROCEDURE: CHEST AP ONLY AP chest. HISTORY: Recent diagnosis with pneumonia with fever and chills, not feeling better AP view was taken of the chest. Heart is normal in size. There is no pleural effusion. There is no acute infiltrate. Heart is normal in size. IMPRESSION: 1. No infiltrates noted. Electronically signed by: Jonny Amanda MD (05/08/2020 8:22 PM) [id number] DICTATED and SIGNED BY: JONNY AMANDA MD DATE: 05/08/2020207593ODP6 0 Course & Med Decision Making: Course & Med Decision Making Pertinent Labs and Imaging studies reviewed. (See chart for details) This is a 24-year-old female patient presenting to the ED with a complaint of headache and not feeling any better after being diagnosed with pneumonia on May 03, 2020. She is supposed to be on doxycycline which she reports she is barely taking it. Chest x-ray is negative for any acute findings. Informed she can stop taking the doxycycline. She has a rash on the left upper chest, she was given prescription for triamcinolone cream. Discharge to home. Follow- up with PCP in 1 to 2 weeks Dragon Disclaimer: Dragon Disclaimer: This electronic medical record was generated, in whole or in part, using a voice recognition dictation system. Departure Departure Impression: Primary Impression: Headache Qualified Codes: R51.9 - Headache, unspecified Additional Impression: Contact dermatitis and eczema Disposition: 01 DC HOME SELF CARE/HOMELESS Condition: STABLE Referrals: NO PCP (PCP) MARIANNE LUI MD follow up in 2 weeks Patient Instructions: Contact Dermatitis, [id number], Eczema, Headache, FAQs Additional Instructions: You were evaluated in the emergency room, your chest x-ray today is negative for pneumonia. Considering you are not taking the doxycycline as prescribed, you can stop taking it. Use the prescribed cream for the rash on your chest. I gave your psychology tech, follow-up with the rash in 2 weeks if it does not clear out Scripts Triamcinolone Acetonide (TRIAMCINOLONE ACETONIDE 0.1% OINT) 15 Gm Oint...g. 1 FAYE TP TID for WOUND CARE, #1 TUBE Prov: JILLIAN [employer]U [employer] 05/08/20 JILLIAN LI[employer] May 08, 2020 20:38
[2020-05-08] MEDS ORDERED: TRIA15OI TP (20:46)
== END 2020-05-08 20:50 | disposition home or self-care (01) ==
LOC: ER 18:25
DX: R51.9 Headache, unspecified (principal); L25.9 Unspecified contact dermatitis, unspecified cause; Z87.891 Personal history of nicotine dependence
CPT/HCPCS: 71045; 81025; 99283

== ENCOUNTER 2020-05-22 01:04 | Emergency (ER) | payer SELFPAY ==
[~2020-05-22] VITALS: Ht 170.2 cm; Wt 100.0 kg
[~2020-05-22 01:04] MED LIST changes: +TRIA15OI TP
[2020-05-22 03:05] LABS: BILIRUBIN,URINE NEGATIVE (NEG); CLARITY,URINE CLEAR; COLOR,URINE YELLOW; NITRITE,URINE NEGATIVE (NEG); PROTEIN,URINE NEGATIVE (NEG-TRACE); UROBILINOGEN,URINE 0.2 mg/dL (0.2 mg/dL)
[2020-05-22 03:19] LABS: BACTERIA,URINE MANY /HPF (0-FEW); RBC,URINE 0 /HPF (0-2)
--- NOTE | 2020-05-22 03:20 | PHYS DOC ---
Past Medical History Past Medical History: No Pertinent History, Other Additional Past Medical Histor: GONORRHEA, TRICH, substance abuse Past Surgical History: No Surgical History Additional Past Surgical Histo: bartholyn cyst removal Smoking Status: Former Smoker Alcohol Use: Occasionally Drug Use: Cocaine, Marijuana, Phencyclidine, Other General Adult EDM: Chief Complaint: MULTIPLE COMPLAINTS HPI: HPI: Patient is a 24 year old male who is on no prescription medications presents for evaluation of a fever. Patient states she had a fever yesterday morning around 070 0 hours. Patient she states she woke up took her temperature and noted it to be greater than 100. Patient states she did not take any medications to control her fever. Patient states took her temperature a few hours later and it was 98 degrees. Patient does states she has some occasional nasal congestion. Patient does states she has occasional cough and some palpitations with a sensation of shortness of breath. Patient denies any muscle aches she denies any exposure to anybody positive with Covid. Patient states she self isolates states she does not want to be tested for Covid at this time. Patient also complains of a rash bilateral breast and a rash in her left arm. Patient states she noticed the rashes in bilateral breasts just prior to arrival. Patient states she was taking a shower and noticed these red spots. Patient denies any associated itch pain. The stretcher not raised did not feel warm to touch. Patient does states she has a history of recent nipple piercing bilateral. Patient does state both her of her nipples do have some drainage. Patient also states she recently had a medical . Patient's medical was performed by [facility] on April 21. Patient states she had 2 weeks of bleeding that is currently resolved. Patient states she is not had a menstrual period since. Patient does states she has had some mild abdominal discomfort since the miscarriage. She denies any vaginal bleeding vaginal discharge. She denies any urinary urgency frequency. Review of Systems: Review of Systems: Constitutional: positive fever. [] Eyes: Denies change in visual acuity. [] HENT: Denies nasal congestion or sore throat. [] Respiratory: Denies cough or positive shortness of breath. [] Cardiovascular: Denies chest pain or edema. [Positive palpitation] GI: Denies abdominal pain, nausea, vomiting, bloody stools or diarrhea. [] : Denies dysuria. [] Musculoskeletal: Denies back pain or joint pain. [] Integument: Positive rash. [] Neurologic: Denies headache, focal weakness or sensory changes. [] Endocrine: Denies polyuria or polydipsia. [] Lymphatic: Denies swollen glands. [] Psychiatric: Denies depression or anxiety. [] Heart Score: Risk Factors: Risk Factors: DM, Current or recent (<one month) smoker, HTN, HLP, family history of CAD, obesity. Risk Scores: Score 0 - 3: 2.5% MACE over next 6 weeks - Discharge Home Score 4 - 6: 20.3% MACE over next 6 weeks - Admit for Clinical Observation Score 7 - 10: 72.7% MACE over next 6 weeks - Early Invasive Strategies Allergies: Allergies: Allergies Coded Allergies Type Severity Reaction Last Updated Verified No Known Drug Allergies 10/12/14 No Physical Exam: PE: Constitutional: Well developed, well nourished, no acute distress, non-toxic appearance. [] HENT: Normocephalic, atraumatic, bilateral external ears normal, oropharynx moist, no oral exudates, nose normal. [] Eyes: PERRLA, EOMI, conjunctiva normal, no discharge. [] Neck: Normal range of motion, no tenderness, supple, no stridor. [] Cardiovascular:Heart rate regular rhythm, no murmur [] Lungs & Thorax: Bilateral breath sounds clear to auscultation [] Abdomen: Bowel sounds normal, soft, no tenderness, no masses, no pulsatile masses. [] Skin: Warm, dry, no erythema, small raised hives left arm, bilateral nipples patient has 2 areas that are approximately 4 cm in length they are red slightly warm to the touch not raised. Back: No tenderness, no CVA tenderness. [] Extremities: No tenderness, no cyanosis, no clubbing, ROM intact, no edema. [] Neurologic: Alert and oriented X 3, normal motor function, normal sensory function, no focal deficits noted. [] Psychologic: Affect normal, judgement normal, mood normal. [] Current Patient Data: Labs: Laboratory Tests Test 05/22/20 02:44 POC Urine HCG, Qualitative Hcg negative (Negative) Vital Signs: Vital Signs Date Time Temp Pulse Resp B/P (MAP) Pulse Ox O2 Delivery O2 Flow Rate FiO2 05/22/20 02:16 98.1 82 18 105/60 (75) 98 Room Air 98.1 EKG: EKG: [] Radiology/Procedures: Radiology/Procedures: [] Course & Med Decision Making: Course & Med Decision Making Pertinent Labs and Imaging studies reviewed. (See chart for details) [] Decision to place patient on Keflex. Breast rash may be related to recent nipple piercing with drainage. Patient's rash on left forearm is likely hives. Patient states they have improved. Advised to take Benadryl and over-the- counter hydrocortisone as needed. Fever palpitation and shortness of breath could be related to Covid. Patient does not want Covid testing performed. [employer] Disclaimer: [employer] Disclaimer: This electronic medical record was generated, in whole or in part, using a voice recognition dictation system. Departure Departure Impression: Primary Impression: RASH AND OTHER NONSPECIFIC SKIN ERUPTION Additional Impression: ABSCESS OF THE BREAST AND NIPPLE Disposition: 01 DC HOME SELF CARE/HOMELESS Condition: STABLE Referrals: NO PCP (PCP) Patient Instructions: Abscess, Rash Scripts Cephalexin (KEFLEX) 500 Mg Capsule 1 CAP PO TID for 10 Days, #30 CAP 0 Refills Prov: ANDRA BENAVIDES DO 05/22/20 ANDRA BENAVIDES DO May 22, 2020 03:20
[2020-05-22 03:25] VITALS: BP 143/77
[2020-05-22] MEDS ORDERED: CEPH-264 PO (03:38)
== END 2020-05-22 03:44 | disposition home or self-care (01) ==
LOC: ER 01:55
DX: N61.1 Abscess of the breast and nipple (principal); R21 Rash and other nonspecific skin eruption; R50.9 Fever, unspecified; R09.81 Nasal congestion; R05 Cough; F12.90 Cannabis use, unspecified, uncomplicated; F14.90 Cocaine use, unspecified, uncomplicated; F19.90 Other psychoactive substance use, unspecified, uncomplicated; Z98.890 Other specified postprocedural states
CPT/HCPCS: 81001; 81025; 87086; 99283

== ENCOUNTER 2020-09-20 21:50 | Emergency (ER) | payer SELFPAY ==
[~2020-09-20] VITALS: Ht 172.7 cm; Wt 104.0 kg
[~2020-09-20 21:50] MED LIST changes: +CEPH-264 PO
--- NOTE | 2020-09-20 22:14 | PHYS DOC ---
Past Medical History Past Medical History: No Pertinent History, Other Additional Past Medical Histor: GONORRHEA, TRICH, substance abuse Past Surgical History: No Surgical History Additional Past Surgical Histo: bartholyn cyst removal Smoking Status: Former Smoker Alcohol Use: Occasionally Drug Use: Cocaine, Marijuana, Phencyclidine, Other General Adult EDM: Chief Complaint: ABDOMINAL PAIN HPI: HPI: Patient is a 24-year-old female presenting for a constellation of symptoms. She fears she is despite numerous home tests. In addition, she has had vague right and left lower pubic pain that has been intermittent for past x1 week. She is concerned for urinary tract infection or ectopic for which she has x2 in the past. She also reports history of constipation, has not been adequately hydrating herself with water daily or taking adequate amounts of fiber through her diet. She started reading on [employer] potential causes of her symptoms and was also concerned about appendicitis. No fever, chest pain, shortness of breath, ripping or tearing abdominal pain, dysuria, changes in motor or sensory function, no STEMI Review of Systems: Review of Systems: Fourteen body systems of review of systems have been reviewed. See HPI for pertinent positives and negative responses, other kaur all other systems are negative, non-pertinent or non-contributory Heart Score: C/O Chest Pain: No HEART Score for Chest Pain: HEART Score for Chest Pain Response (Comments) Value History Slighlty/Non-Suspicious 0 Age < 45 0 Risk Factors No Risk Factors 0 Total 0 Risk Factors: Risk Factors: DM, Current or recent (<one month) smoker, HTN, HLP, family history of CAD, obesity. Risk Scores: Score 0 - 3: 2.5% MACE over next 6 weeks - Discharge Home Score 4 - 6: 20.3% MACE over next 6 weeks - Admit for Clinical Observation Score 7 - 10: 72.7% MACE over next 6 weeks - Early Invasive Strategies Allergies: Allergies: Allergies Coded Allergies Type Severity Reaction Last Updated Verified No Known Drug Allergies 10/12/14 No Physical Exam: PE: Constitutional: Well developed, well nourished, no acute distress, non-toxic appearance. HENT: Normocephalic, atraumatic, bilateral external ears normal, oropharynx moist, no oral exudates, nose normal. Eyes: PERRLA, EOMI, conjunctiva normal, no discharge. Neck: Normal range of motion, no tenderness, supple, no stridor. Cardiovascular: Heart rate regular, sinus rhythm, no murmurs rubs or gallops Lungs & Thorax: Bilateral breath sounds clear to auscultation Abdomen: Bowel sounds normal, soft, no tenderness, no masses, no pulsatile masses. Nonsurgical abdomen, no peritoneal signs Skin: Warm, dry, no erythema, no rash. Back: No tenderness, no CVA tenderness. Extremities: No tenderness, no cyanosis, no clubbing, ROM intact, no edema. Neurologic: Alert and oriented X 3, grossly normal motor & sensory function, no focal deficits noted. Psychologic: Affect normal, judgement normal, mood normal. Current Patient Data: Labs: Laboratory Tests Test 09/20/20 22:00 09/20/20 22:13 Urine Collection Type Unknown Urine Color Yellow Urine Clarity Clear Urine pH 6.5 Urine Specific [place] 1.025 Urine Protein Negative mg/dL Urine Glucose (UA) Negative mg/dL Urine Ketones (Stick) Negative mg/dL Urine Blood Negative Urine Nitrite Negative Urine Bilirubin Negative Urine Urobilinogen Dipstick 0.2 mg/dL Urine Leukocyte Esterase Negative Urine RBC 0 /HPF Urine WBC 0 /HPF Urine Squamous Epithelial Cells Mod /LPF Urine Amorphous Sediment Present /HPF Urine Bacteria 0 /HPF Urine Mucus Mod /LPF Bedside Urine HCG, Qualitative Hcg negative Vital Signs: Vital Signs Date Time Temp Pulse Resp B/P (MAP) Pulse Ox O2 Delivery O2 Flow Rate FiO2 09/20/20 22:20 98.7 80 20 114/58 (76) 100 Room Air 98.7 Vital Signs Date Time Temp Pulse Resp B/P (MAP) Pulse Ox O2 Delivery O2 Flow Rate FiO2 09/20/20 22:20 98.7 80 20 114/58 (76) 100 Room Air 98.7 EKG: EKG: [] Radiology/Procedures: Radiology/Procedures: [] Course & Med Decision Making: Course & Med Decision Making Vital signs stable. HPI and physical exam grossly nonconcerning for any emergent or surgical issues I reviewed negative test in fact that ectopic likelihood was low given negative test. Discussed negative UA. Given patient's exam I discussed little utility in further diagnostic work-up in ER setting. Patient anxious. She is asking if anxiety could be causing a lot of her symptoms, I feel that it is contributory. I discussed physical exam findings at length that were all reassuring, I did advise close PCP and [facility] follow-up for continuity of care. Patient agrees, states she needs to do better about attending outpatient visits. I did disclose this might be an acute presentation of more concerning pathology and so, I stressed need to call primary care physician tomorrow to organize close follow-up Strict return precautions were discussed with good understanding by patient, all questions and concerns addressed prior to ER departure with continued suppor tive care advised [employer] Disclaimer: [employer] Disclaimer: This electronic medical record was generated, in whole or in part, using a voice recognition dictation system. Departure Departure Impression: Primary Impression: Unspecified abdominal pain Additional Impression: Nausea Disposition: HOME / SELF CARE / HOMELESS Condition: STABLE Referrals: NO PCP (PCP) Patient Instructions: Abdominal Pain (Nonspecific) Additional Instructions: You have been evaluated in the Emergency Department today for abdominal pain. Your evaluation was not suggestive of any emergent condition requiring medical intervention at this time. However, some abdominal problems make take more time to appear. Therefore, it is important for you to watch for any new symptoms or worsening of your current condition. As disclosed, it was recommended that you follow-up with your [facility] physician in the outpatient setting for continuity of care. They will be able to provide further assistance for you and as mention, continuity of care I did disclose your physical exam findings were nonconcerning and there is little indication for further diagnostic work-up in ER setting. With that said, please do not hesitate to come back if symptoms worsen or you have any concerns prior to outpatient follow-up Return to the Emergency Department if you experience worsening pain, persistent fevers greater than 100.4, recurrent vomiting, blood in vomit, blood in stool, dark tarry stool, chest pain, difficulty breathing, or any other concerning symptoms. MIGUEL LOMBARDI DO September 20, 2020 22:14
[2020-09-20 22:20] VITALS: BP 114/58
[2020-09-20 22:23] LABS: BILIRUBIN,URINE NEGATIVE (NEG); CLARITY,URINE CLEAR; COLOR,URINE YELLOW; NITRITE,URINE NEGATIVE (NEG); PH,URINE 6.5 (<5.0-8.0); PROTEIN,URINE NEGATIVE (NEG-TRACE); UROBILINOGEN,URINE 0.2 mg/dL (0.2 mg/dL)
[2020-09-20 22:29] LABS: AMORPHOUS SEDIMENT,UR PRESENT /HPF; BACTERIA,URINE 0 /HPF (0-FEW); RBC,URINE 0 /HPF (0-2); WBC,URINE 0 /HPF (0-4)
== END 2020-09-20 23:05 | disposition home or self-care (01) ==
LOC: ER 21:50
DX: R10.32 Left lower quadrant pain (principal); R11.0 Nausea; Z87.891 Personal history of nicotine dependence
CPT/HCPCS: 81001; 81025; 99283